=== PATIENT | female | born 1960 | race Two or more races ===

== ENCOUNTER 2025-01-19 01:22 | Inpatient (IN) | payer MEDICARE, OTHER ==
[2025-01-19] VITALS (41 sets, daily range): BP systolic 98–148; BP diastolic 45–80; TEMP 98–100; O2SAT 99–100
[~2025-01-19] VITALS: Ht 167.6 cm; Wt 100.2 kg
[2025-01-19 01:47] LABS: BASOPHILS # (AUTO) 0.1 K/uL (0.0-0.2); BASOPHILS % (AUTO) 0.7 % (0.0-2.0); EOSINOPHILS # (AUTO) 0.5 K/uL (0.0-0.7); EOSINOPHILS % (AUTO) 2.7 % (0.0-6.0); HEMATOCRIT 41 % (33-45); HEMOGLOBIN 13.6 g/dL (11.5-14.8); LYMPHOCYTES # (AUTO) 8.5 K/uL (0.8-4.8); LYMPHOCYTES % (AUTO) 42.7 % (20.0-44.0); MEAN CORPUSCULAR HEMOGLOBIN 30 PG (26.0-33.0); MEAN CORPUSCULAR HGB CONC 33 g/dl (31.0-36.0); MEAN CORPUSCULAR VOLUME 92 fL (82-100); MONOCYTES # (AUTO) 1.6 K/uL (0.1-1.30); NEUTROPHILS # (AUTO) 9.2 K/uL (1.8-8.9); NEUTROPHILS % (AUTO) 45.9 % (43.0-81.0); PLATELET COUNT (AUTO) 267 K/uL (150-450); RED BLOOD CELL COUNT(AUTO) 4.49 MIL/uL (4.0-5.2)
[2025-01-19] MEDS: SUCCINYLCHOLINE CHLORIDE 20 MG/ML VIAL IV ONE (01:51)
[2025-01-19] MEDS: ETOMIDATE 2 MG/ML VIAL IV ONE (01:51)
[2025-01-19 01:57] LABS: CARBON DIOXIDE 25 mmol/L (21-32); CHLORIDE 103 mmol/L (98-107); CREATININE 1.1 mg/dL (0.6-1.3); GLUCOSE 296 mg/dL (74-106); POTASSIUM 3.6 mmol/L (3.5-5.1); SODIUM SERUM 141 mmol/L (136-145); UREA NITROGEN, BLOOD 21 mg/dL (7-18)
[2025-01-19 02:04] LABS: ALANINE AMINOTRANSFERASE 21 U/L (12-78); ALBUMIN 3.8 g/dL (3.4-5.0); ALKALINE PHOSPHATASE 221 U/L (46-116); ASPARTATE AMINOTRANSFERASE 34 U/L (15-37); BILIRUBIN,DIRECT 0.1 mg/dL (0.0-0.2); BILIRUBIN,TOTAL 0.5 mg/dL (0.2-1.0); TOTAL PROTEIN, SERUM 8.5 g/dL (6.4-8.2)
[2025-01-19] MEDS: ALBUTEROL FS 2.5 MG/3 ML VIAL.NEB CONTNEB ONE (02:04)
[2025-01-19 02:07] LABS: INR 0.99 (0.91-1.10); PARTIAL THROMBOPLASTIN TIME 25.1 SEC (24.3-34.3); PROTHROMBIN TIME 10.5 SECS (9.2-11.1)
[2025-01-19] MEDS ORDERED: ALBUTEROL FS 2.5 MG/3 ML VIAL.NEB ONE (02:11)
[2025-01-19 02:12] LABS: LACTIC ACID 8.3 mmol/L (0.4-2.0)
[2025-01-19] MEDS ORDERED: PROPOFOL 100 ML ONE (02:31)
[2025-01-19] MEDS: PROPOFOL 10MG/ML 50ML 50 ML IV PRN (02:35)
[2025-01-19 03:19] LABS: ABG BASE EXCESS -5.4 mmol/L (-2.0-3.0); ABG OXYGEN SATURATION 98.4 % (94.0-98.0); ABG PCO2 39.2 mmHg (32.0-45.0); ABG PH 7.327 (7.350-7.450); ABG TOTAL HEMOGLOBIN 12.5 G/dL (12.0-16.0); COHb 1.8 % (0.5-1.5); MetHb 0.3 % (0.0-1.5); O2Hb 96.3 % (94.0-97.0); PEEP,BG 5 cm H2O; SITE, ABG LEFT RADIAL; VT, ABG 450 mL
[2025-01-19 03:19] LABS: ADD URINE CULTURE YES; APPEARANCE,URINE CLEAR (CLEAR); BACTERIA,URINE Few /HPF (None Seen); BILIRUBIN,URINE NEGATIVE (NEGATIVE); BLOOD, URINE 1+ Ery/uL (NEGATIVE); COLOR,URINE YELLOW (YELLOW); KETONES,URINE NEGATIVE (NEGATIVE); LEUKOCYTE ESTERASE ,URINE NEGATIVE (NEGATIVE); NITRITE, URINE POSITIVE (NEGATIVE); PROTEIN,URINE 2+ mg/dl (NEGATIVE); SQUAMOUS EPITHELIAL CELL,UR Rare /HPF (None Seen); UGLUCOSE 1+ mg/dL (NEGATIVE)
[2025-01-19] MEDS ORDERED: ACETAMINOPHEN 650 MG/SUPP.RECT RC PRN (04:00)
[2025-01-19] MEDS ORDERED: ALBUTEROL FS 2.5 MG/3 ML VIAL.NEB NEB PRN (04:00)
[2025-01-19] MEDS ORDERED: IPRATROPIUM NEB FS 0.5 MG/2.5 ML AMPUL.NEB NEB PRN (04:00)
[2025-01-19] MEDS ORDERED: LEVOFLOXACIN 750 MG /D5W 150ML 750 MG in PREMIX 1 EA IV SCH (07:00)
[2025-01-19] MEDS ORDERED: IV NS 0.9% 1,000 ML IV ONE (07:00)
[2025-01-19 07:20] LABS: ALANINE AMINOTRANSFERASE 23 U/L (12-78); ALBUMIN 3.2 g/dL (3.4-5.0); ALKALINE PHOSPHATASE 155 U/L (46-116); ASPARTATE AMINOTRANSFERASE 42 U/L (15-37); BILIRUBIN,DIRECT 0.2 mg/dL (0.0-0.2); BILIRUBIN,TOTAL 0.5 mg/dL (0.2-1.0); CALCIUM, SERUM 8.1 mg/dL (8.5-10.1); CARBON DIOXIDE 26 mmol/L (21-32); CHLORIDE 105 mmol/L (98-107); GLUCOSE 330 mg/dL (74-106); MAGNESIUM 2.1 mg/dL (1.8-2.4); NT-PRO BNP 1802 pg/mL (0-125); PHOSPHORUS 4.7 mg/dL (2.5-4.9); POTASSIUM 4.1 mmol/L (3.5-5.1); SODIUM SERUM 142 mmol/L (136-145); TOTAL PROTEIN, SERUM 6.9 g/dL (6.4-8.2); UREA NITROGEN, BLOOD 25 mg/dL (7-18)
[2025-01-19 07:37] LABS: BASOPHILS # (AUTO) 0.1 K/uL (0.0-0.2); BASOPHILS % (AUTO) 0.4 % (0.0-2.0); EOSINOPHILS % (AUTO) 0.1 % (0.0-6.0); HEMATOCRIT 34 % (33-45); HEMOGLOBIN 11.3 g/dL (11.5-14.8); LYMPHOCYTES # (AUTO) 1.1 K/uL (0.8-4.8); LYMPHOCYTES % (AUTO) 6.4 % (20.0-44.0); MEAN CORPUSCULAR HEMOGLOBIN 30 PG (26.0-33.0); MEAN CORPUSCULAR HGB CONC 34 g/dl (31.0-36.0); MEAN CORPUSCULAR VOLUME 89 fL (82-100); MONOCYTES # (AUTO) 1.4 K/uL (0.1-1.30); MONOCYTES % (AUTO) 8.3 % (2.0-12.0); NEUTROPHILS # (AUTO) 14.3 K/uL (1.8-8.9); NEUTROPHILS % (AUTO) 84.8 % (43.0-81.0); PLATELET COUNT (AUTO) 218 K/uL (150-450); RED BLOOD CELL COUNT(AUTO) 3.77 MIL/uL (4.0-5.2); RED CELL DISTRIBUTION WIDTH 13.9 % (11.5-15.0); WHITE BLOOD COUNT (AUTO) 16.9 K/uL (4.3-11.0)
[2025-01-19] MEDS ORDERED: VANCOMYCIN 1.5 GM in IV NS 0.9% 250 ML IV ONE (08:00)
[2025-01-19] MEDS: ASPIRIN EC 325 MG TABLET.DR PO SCH (09:00)
[2025-01-19] MEDS: PROPOFOL 100 ML IV PRN (09:28)
[2025-01-19] MEDS: IV NS 0.9% 1,000 ML IV PRN (09:28)
[2025-01-19] MEDS: PANTOPRAZOLE 40 MG VIAL IV SCH (09:29)
[2025-01-19] MEDS: PIPERACILLIN /TAZOBACTAM 3.375 G in IV NS 0.9% 50 ML IV ONE (09:29)
[2025-01-19] MEDS: VANCOMYCIN 750 MG in IV D5W 250 ML IV SCH ×2 (09:29→21:38)
[2025-01-19] MEDS: ENOXAPARIN SODIUM 40 MG/0.4 ML DISP.SYRIN SQ SCH (09:30)
[2025-01-19] MEDS ORDERED: SUCCINYLCHOLINE CHLORIDE 20 MG/ML VIAL IV ONE (09:52)
[2025-01-19] MEDS ORDERED: IBUP-1955 PO (11:13)
[2025-01-19] MEDS ORDERED: AMLO-213 PO (11:13)
[2025-01-19] MEDS ORDERED: DULO60CA64 PO (11:13)
[2025-01-19] MEDS ORDERED: LOSA50TA39 PO (11:13)
[2025-01-19] MEDS ORDERED: INSU100I30 SQ (11:13)
[2025-01-19] MEDS ORDERED: ROSU20TA2 PO (11:13)
[2025-01-19] MEDS ORDERED: PANT40TA49 PO (11:13)
[2025-01-19] MEDS ORDERED: TRAM50TA2 PO (11:13)
[2025-01-19] MEDS ORDERED: HYDR-3972 PO (11:13)
[2025-01-19] MEDS ORDERED: CLOP75TA15 PO (11:13)
[2025-01-19] MEDS ORDERED: INSU100I4 SQ (11:13)
[2025-01-19] MEDS ORDERED: CITA40TA11 PO (11:13)
[2025-01-19] MEDS ORDERED: METO25TA20 PO (11:13)
[2025-01-19] MEDS ORDERED: ASPI-1169 PO (11:13)
[2025-01-19] MEDS ORDERED: GABA300C PO (11:13)
[2025-01-19] MEDS: PIPERACILLIN /TAZOBACTAM 3.375 G in IV D5W 100 ML IV SCH (13:20)
[2025-01-19] MEDS: CLOPIDOGREL BISULFATE 300 MG TABLET PO ONE (18:43)
[2025-01-19] MEDS: FUROSEMIDE 20 MG/2 ML VIAL IV SCH (18:43)
[2025-01-19] MEDS: HEPARIN SODIUM, PORCINE 5000 UNITS/1 ML VIAL IV ONE (18:57)
[2025-01-19] MEDS: HEPARIN INFUSION/D5W 500 ML IV PRN (19:28)
[2025-01-19] MEDS ORDERED: DEXTROSE 50%-WATER 50 ML DISP.SYRIN IV PRN (20:00)
[2025-01-19] MEDS: ATORVASTATIN 40 MG TABLET PO SCH (22:08)
[2025-01-20] VITALS (50 sets, daily range): BP systolic 108–177; BP diastolic 43–140; TEMP 98.5–100.4; O2SAT 96–100
[2025-01-20] MEDS: BLOOD SUGAR DIAGNOSTIC 1 EACH STRIP IN SCH ×2 (00:16→18:10)
[2025-01-20] MEDS: INSULIN REGULAR, HUMAN 100 UNIT/ML 3 ML VIAL SQ PRN ×2 (00:17→22:22)
[2025-01-20 05:16] LABS: BASOPHILS % (AUTO) 0.3 % (0.0-2.0); EOSINOPHILS # (AUTO) 0.1 K/uL (0.0-0.7); EOSINOPHILS % (AUTO) 0.9 % (0.0-6.0); HEMATOCRIT 32 % (33-45); HEMOGLOBIN 10.9 g/dL (11.5-14.8); LYMPHOCYTES # (AUTO) 2.3 K/uL (0.8-4.8); LYMPHOCYTES % (AUTO) 16.2 % (20.0-44.0); MEAN CORPUSCULAR HEMOGLOBIN 30 PG (26.0-33.0); MEAN CORPUSCULAR HGB CONC 34 g/dl (31.0-36.0); MEAN CORPUSCULAR VOLUME 89 fL (82-100); MONOCYTES # (AUTO) 1.4 K/uL (0.1-1.30); MONOCYTES % (AUTO) 9.5 % (2.0-12.0); NEUTROPHILS # (AUTO) 10.5 K/uL (1.8-8.9); NEUTROPHILS % (AUTO) 73.1 % (43.0-81.0); PLATELET COUNT (AUTO) 196 K/uL (150-450); RED BLOOD CELL COUNT(AUTO) 3.61 MIL/uL (4.0-5.2); WHITE BLOOD COUNT (AUTO) 14.4 K/uL (4.3-11.0)
[2025-01-20 05:30] LABS: CALCIUM, SERUM 7.6 mg/dL (8.5-10.1); MAGNESIUM 2.1 mg/dL (1.8-2.4); PHOSPHORUS 3.3 mg/dL (2.5-4.9); POTASSIUM 3.3 mmol/L (3.5-5.1)
[2025-01-20] MEDS: POTASSIUM CL. PREMIX PERIPHER. 50 ML IV SCH (10:12)
[2025-01-20] MEDS: CLOPIDOGREL BISULFATE 75 MG TABLET PO SCH (11:42)
[2025-01-20] MEDS: ONDANSETRON HCL/PF 4 MG/2 ML VIAL IVP PRN (12:08)
[2025-01-20] MEDS ORDERED: DEXTROSE 50%-WATER 50 ML DISP.SYRIN IV PRN (17:30)
[2025-01-20] MEDS: GABAPENTIN 300 MG CAPSULE PO PRN (19:31)
[2025-01-21] VITALS (23 sets, daily range): BP systolic 96–155; BP diastolic 44–77; TEMP 98.4–99.8; O2SAT 96–99
[2025-01-21] MEDS ORDERED: Medication Not On Formulary EA (Citalopram Hydrobromide (Citalopram Hbr) 40 MG) PO SCH
[2025-01-21] MEDS ORDERED: CITALOPRAM HYDROBROMIDE 20 MG TABLET PO SCH (00:15)
[2025-01-21] MEDS: CITALOPRAM HYDROBROMIDE 20 MG TABLET PO SCH (04:42)
[2025-01-21 04:55] LABS: BASOPHILS % (AUTO) 0.4 % (0.0-2.0); EOSINOPHILS # (AUTO) 0.1 K/uL (0.0-0.7); EOSINOPHILS % (AUTO) 0.9 % (0.0-6.0); HEMATOCRIT 30 % (33-45); HEMOGLOBIN 10.3 g/dL (11.5-14.8); LYMPHOCYTES # (AUTO) 2.1 K/uL (0.8-4.8); LYMPHOCYTES % (AUTO) 17.1 % (20.0-44.0); MEAN CORPUSCULAR HEMOGLOBIN 30 PG (26.0-33.0); MEAN CORPUSCULAR HGB CONC 34 g/dl (31.0-36.0); MEAN CORPUSCULAR VOLUME 88 fL (82-100); MONOCYTES # (AUTO) 1.1 K/uL (0.1-1.30); MONOCYTES % (AUTO) 9.5 % (2.0-12.0); NEUTROPHILS # (AUTO) 8.7 K/uL (1.8-8.9); NEUTROPHILS % (AUTO) 72.1 % (43.0-81.0); PLATELET COUNT (AUTO) 196 K/uL (150-450); RED BLOOD CELL COUNT(AUTO) 3.44 MIL/uL (4.0-5.2); RED CELL DISTRIBUTION WIDTH 13.8 % (11.5-15.0)
[2025-01-21 05:07] LABS: CALCIUM, SERUM 8.2 mg/dL (8.5-10.1); CREATININE 0.9 mg/dL (0.6-1.3)
[2025-01-21 05:16] LABS: INR 1.1 (0.91-1.10); PARTIAL THROMBOPLASTIN TIME 53.8 SEC (24.3-34.3); PROTHROMBIN TIME 11.6 SECS (9.2-11.1)
[2025-01-21] MEDS: PANTOPRAZOLE 40 MG TABLET.DR PO SCH (09:09)
[2025-01-21] MEDS ORDERED: POTASSIUM CHLORIDE 20 MEQ TAB.PRT.SR PO SCH (11:00)
[2025-01-21] MEDS: POTASSIUM CHLORIDE 20 MEQ POWDER PACKET PO SCH (11:10)
[2025-01-21] MEDS: FUROSEMIDE 20 MG/2 ML VIAL IV SCH (21:48)
[2025-01-22] VITALS: BP 138/59; TEMP 98.6; O2SAT 98
[2025-01-22 04:00] VITALS: BP 156/59; TEMP 98.4; O2SAT 98
[2025-01-22 06:57] LABS: BASOPHILS % (AUTO) 0.4 % (0.0-2.0); EOSINOPHILS # (AUTO) 0.1 K/uL (0.0-0.7); HEMATOCRIT 30 % (33-45); HEMOGLOBIN 10.7 g/dL (11.5-14.8); LYMPHOCYTES # (AUTO) 1.7 K/uL (0.8-4.8); MEAN CORPUSCULAR HEMOGLOBIN 31 PG (26.0-33.0); MEAN CORPUSCULAR HGB CONC 35 g/dl (31.0-36.0); MEAN CORPUSCULAR VOLUME 87 fL (82-100); MONOCYTES % (AUTO) 9.4 % (2.0-12.0); NEUTROPHILS # (AUTO) 7.6 K/uL (1.8-8.9); NEUTROPHILS % (AUTO) 73.2 % (43.0-81.0); PLATELET COUNT (AUTO) 203 K/uL (150-450); RED BLOOD CELL COUNT(AUTO) 3.47 MIL/uL (4.0-5.2); RED CELL DISTRIBUTION WIDTH 13.5 % (11.5-15.0); WHITE BLOOD COUNT (AUTO) 10.4 K/uL (4.3-11.0)
[2025-01-22 07:13] LABS: INR 1.07 (0.91-1.10); PARTIAL THROMBOPLASTIN TIME 54.4 SEC (24.3-34.3); PROTHROMBIN TIME 11.3 SECS (9.2-11.1)
[2025-01-22 07:17] LABS: CALCIUM, SERUM 8.8 mg/dL (8.5-10.1); CREATININE 0.8 mg/dL (0.6-1.3); POTASSIUM 3.1 mmol/L (3.5-5.1)
[2025-01-22 08:00] VITALS: BP 155/61; TEMP 98.5; O2SAT 96
[2025-01-22] MEDS: AMOX/CLAVULANATE 875 MG TABLET PO SCH (08:09)
[2025-01-22] MEDS: LEVOFLOXACIN (250MG) 250 MG TABLET PO SCH (08:10)
[2025-01-22 09:01] LABS: ABG BASE EXCESS 3.2 mmol/L (-2.0-3.0); ABG OXYGEN SATURATION 94.7 % (94.0-98.0); ABG PCO2 37.8 mmHg (32.0-45.0); ABG PO2 73.1 mmHg (83.0-108.0); ABG TOTAL HEMOGLOBIN 11.6 G/dL (12.0-16.0); COHb 0.3 % (0.5-1.5); MetHb 0.1 % (0.0-1.5); O2Hb 94.3 % (94.0-97.0); PEEP,BG 5 cm H2O; SITE, ABG LEFT RADIAL
[2025-01-22] MEDS: POTASSIUM CHLORIDE 20 MEQ POWDER PACKET PO SCH (09:52)
[2025-01-22] MEDS ORDERED: MAGNESIUM HYDROXIDE 30 ML UDC PO PRN (10:00)
[2025-01-22 12:00] VITALS: BP 160/69; TEMP 98.8; O2SAT 96
[2025-01-22] MEDS ORDERED: CLONIDINE HCL 0.1 MG TABLET PO PRN (15:30)
[2025-01-22 16:00] VITALS: BP 150/59; TEMP 98.4; O2SAT 96
== END 2025-01-22 20:29 | disposition short-term general hospital (02) | DRG 208 ==
LOC: ER 01:24 → ICU 06:09 → TELE1 01-21 12:35
PROVIDERS: ADMIT Nurse Practitioner Family; ATTEND Internal Medicine
PROC: 5A1945Z Respiratory Ventilation, 24-96 Consecutive Hours (ICD-10-PCS; principal; 2025-01-19)
PROC: 0BH17EZ Insertion of Endotracheal Airway into Trachea, Via Natural or Artificial Opening (ICD-10-PCS; 2025-01-19)
DX: J96.01 Acute respiratory failure with hypoxia (principal); I21.4 Non-ST elevation (NSTEMI) myocardial infarction; I50.23 Acute on chronic systolic (congestive) heart failure; E87.20 Acidosis, unspecified; N39.0 Urinary tract infection, site not specified; J98.11 Atelectasis; I11.0 Hypertensive heart disease with heart failure; E86.0 Dehydration; I25.10 Atherosclerotic heart disease of native coronary artery without angina pectoris; E11.9 Type 2 diabetes mellitus without complications; E66.01 Morbid (severe) obesity due to excess calories; E78.5 Hyperlipidemia, unspecified; G47.33 Obstructive sleep apnea (adult) (pediatric); I25.2 Old myocardial infarction; Z20.822 Contact with and (suspected) exposure to COVID-19; J44.9 Chronic obstructive pulmonary disease, unspecified; Z68.35 Body mass index [BMI] 35.0-35.9, adult; E65 Localized adiposity; R58 Hemorrhage, not elsewhere classified; B96.89 Other specified bacterial agents as the cause of diseases classified elsewhere
CPT/HCPCS: 31720; 36415; 36600; 71045-TC; 80048-TC; 80076-TC; 80202-TC; 81001; 82803-TC; 82962-TC; 83605-TC; 83735-TC; 83880; 84100-TC; 84484-TC; 85025-TC; 85610-TC; 85730-TC; 87040-TC; 87070-TC; 87081-TC; 87086-TC; 87186-TC; 87205-TC; 92526; 92611-TC; 93307-TC; 94002-TC; 94799-TC; 97110-TC; 97116-TC; 97530-TC; 97535-TC; A4216; A4217; A4223; G0378; J0330; J1644; J1650; J1815; J1938; J1956; J2405; J2470; J2543; J3371; J3480; J3490; J7030; J7050; J7060